=== PATIENT | female | born 1950 | race Caucasian/White ===

== ENCOUNTER → 2017-03-09 | Emergency (ER) | payer OTHER ==
[2017-03-09 05:16] VITALS: BP 132/76; PULSE 78; RESP 14; TEMP 98.2; O2SAT 97
--- NOTE | 2017-03-09 23:30 | EDPHY ---
H & P Stated Complaint: hand veins standing up x 3 days Time Seen by Provider: 03/09/17 23:28 HPI/ROS: CHIEF COMPLAINT: Veins popping out HISTORY OF PRESENT ILLNESS: The patient is an elderly female who comes to the emergency department complaining the veins in her hands are popping out. She states that they have become gradually more visible over the last 3 days. She denies weight loss. She denies high blood pressure comma chest pain or headaches. She denies dizziness. She denies shortness of breath. She states that she is very anxious and cannot sleep because her veins are popping out. She is worried that something may be severely wrong with her. REVIEW OF SYSTEMS: Constitutional: denies: chills, fever, recent illness, recent injury EENTM: denies: blurred vision, double vision, nose congestion Respiratory: denies: cough, shortness of breath Cardiac: denies: chest pain, irregular heart rate, lightheadedness, palpitations Gastrointestinal/Abdominal: denies: abdominal pain, diarrhea, nausea, vomiting, blood streaked stools Genitourinary: denies: dysuria, frequency, hematuria, pain Musculoskeletal: denies: joint pain, muscle pain Skin: denies: lesions, rash, jaundice, bruising Neurological: denies: headache, numbness, paresthesia, tingling, dizziness, weakness Hematologic/Lymphatic: denies: blood clots, easy bleeding, easy bruising Immunologic/allergic: denies: HIV/AIDS, transplant EXAM: GENERAL: Well-appearing, well-nourished and in no acute distress. HEAD: Atraumatic, normocephalic. EYES: Pupils equal round and reactive to light, extraocular movements intact, sclera anicteric, conjunctiva are normal. ENT: TMs normal, nares patent, oropharynx clear without exudates. Moist mucous membranes. NECK: Normal range of motion, supple without lymphadenopathy or JVD. LUNGS: Breath sounds clear to auscultation bilaterally and equal. No wheezes rales or rhonchi. HEART: Regular rate and rhythm without murmurs, rubs or gallops. ABDOMEN: Soft, nontender, normoactive bowel sounds. No guarding, no rebound. No masses appreciated. BACK: No CVA tenderness, no spinal tenderness, step-offs or deformities EXTREMITIES: Normal range of motion, no pitting or edema. No clubbing or cyanosis. NEUROLOGICAL: Cranial nerves II through XII grossly intact. Normal speech, normal gait. 5/5 strength, normal movement in all extremities, normal sensation PSYCH: Very anxious SKIN: Normally visible veins and skin, no erythema or swelling, no firmness or sign of infection or phlebitis or DVT no edema. Source: Patient Exam Limitations: No limitations - Personal History Current Tetanus/Diphtheria Vaccine: Yes Tetanus Vaccine Date: < 10 years - Medical/Surgical History Hx Asthma: No Hx Chronic Respiratory Disease: No Hx Diabetes: No Hx Cardiac Disease: No Hx Renal Disease: No Hx Cirrhosis: No Hx Alcoholism: No Hx HIV/AIDS: No Hx Splenectomy or Spleen Trauma: No Other PMH: PSHx: denies. Severe anxiety - Family History Significant Family History: No pertinent family hx - Social History Smoking Status: Never smoked Alcohol Use: Sober Drug Use: None Constitutional: Initial Vital Signs Temperature (C) 36.8 C 03/09/17 05:14 Heart Rate 78 03/09/17 05:14 Respiratory Rate 14 03/09/17 05:14 Blood Pressure 132/76 H 03/09/17 05:14 O2 Sat (%) 97 03/09/17 05:14 O2 Delivery Mode Room Air Allergies/Adverse Reactions: Penicillins Allergy (Verified 08/16/16 16:37) Home Medications: Medication Instructions Recorded NK [No Known Home Meds] 03/09/17 Medical Decision Making ED Course/Re-evaluation: MDM: The patient was reassured multiple times. Her exam is completely normal. She does not have signs of serious illness. She denies weight loss. She denies history of cancer. She felt reassured thinks that she may able to sleep better now. I recommended that she follow up with her [place] physician for 2nd opinion. Partial list of the Differential diagnosis considered include but were not limited to; anxiety, insomnia and although unlikely based on the history and physical exam, I also considered DVT, phlebitis, vasculitis, cancer, weight loss. I discussed these differential diagnoses and the plan with the patient as well as the usual and expected course. The patient understands that the diagnosis is provisional and that in medicine we are not always correct and that further workup is often warranted. Usual and customary warnings were given. All of the patient's questions were answered. The patient was instructed to return to the emergency department should the symptoms at all worsen or return, otherwise to followup with the physician as we discussed. Differential Diagnosis: Partial list of the Differential diagnosis considered include but were not limited to; anxiety, venous occlusion, DVT, thrombophlebitis and although unlikely based on the history and physical exam, I also considered CHF, hypertension, infection. I discussed these differential diagnoses and the plan with the patient as well as the usual and expected course. The patient understands that the diagnosis is provisional and that in medicine we are not always correct and that further workup is often warranted. Usual and customary warnings were given. All of the patient's questions were answered. The patient was instructed to return to the emergency department should the symptoms at all worsen or return, otherwise to followup with the physician as we discussed. Departure - Departure Disposition: Home, Routine, Self-Care Clinical Impression: Anxiety Condition: Fair Instructions: Anxiety (ED) Referrals: ETHEL JUAREZ [Other] - As per Instructions
== END | disposition home or self-care (01) ==
DX: F41.9 Anxiety disorder, unspecified (principal)

== ENCOUNTER 2018-06-10 09:22 | Emergency (ER) | payer OTHER ==
[2018-06-10 09:29] VITALS: BP 153/84
[2018-06-10] MEDS ORDERED: PROPARACAINE 0.5% 15 ML OPHT DROP ONE (09:47)
[2018-06-10] MEDS ORDERED: FLUORESCEIN SODIUM 1 MG STRIP OP ONE (09:47)
--- NOTE | 2018-06-10 10:01 | EDPHY ---
H & P Time Seen by Provider: 06/10/18 09:44 HPI/ROS: CHIEF COMPLAINT: Red eye HISTORY OF PRESENT ILLNESS: 68-year-old female presents to the emergency department with concerns about a red right eye. She denies any known trauma or injury. Her partner looked at her eye this morning and asked why it was read. The patient did not notice it before. She denies any known trauma. No pain associated with her eye. No headache. No URI symptoms. No foreign body sensation. No symptoms in the left eye. No drainage. No mattering. ROS: Denies foreign body sensation, vomiting, cough, visual changes. Past Medical/Surgical History: severe anxiety Social History: and lives in [place] Smoking Status: Never smoked Physical Exam: On examination patient is very pleasant and in no apparent distress. Her right eye reveals subconjunctival hemorrhage to the lateral aspect of her eye near the outer canthus. Her extraocular motions are all intact. No pain with global pressure on the eye. No mattering. No evidence of conjunctivitis. No discharge. Left eye is clear. Constitutional: Initial Vital Signs Temperature (C) 36.4 C 06/10/18 09:27 Heart Rate 84 06/10/18 09:27 Respiratory Rate 18 06/10/18 09:27 Blood Pressure 153/84 H 06/10/18 09:27 O2 Sat (%) 97 06/10/18 09:27 O2 Delivery Mode Room Air Allergies/Adverse Reactions: Penicillins Allergy (Verified 06/10/18 09:29) Home Medications: Medication Instructions Recorded NK [No Known Home Meds] 03/09/17 MDM/Departure - [facility] ED Course/Re-evaluation: The patient has a subconjunctival hemorrhage. The patient was reassured and understands that no treatment is necessary that this will resolve on its own. I did discourage her from rubbing her eye or creating more irritation. She has not take any anticoagulant medication. She is comfortable being discharged home. - Depart Disposition: Home, Routine, Self-Care Clinical Impression: Subconjunctival hemorrhage of right eye Condition: Good Instructions: Subconjunctival Hemorrhage (ED) Additional Instructions: You have a subconjunctival hemorrhage in her right eye which will resolve on its own. This may take several weeks to go away. Try not to rub your eye or create any increased irritation in the eye. You do not need any type of drops or medication. This will resolve on its own. Return to the emergency department if you develop any other concerns especially double vision, blurry vision, pain in her eye, drainage from your I, or if you feel worse in any way. Referrals: Arsenio Ornelas MD [Medical Doctor] - 5-7 days, if not improved ( Occupational Therapy Supervisor on-call)
== END 2018-06-10 10:08 | disposition home or self-care (01) ==
DX: H11.31 Conjunctival hemorrhage, right eye (principal)